=== PATIENT | female | born 1955 | race Caucasian/White ===

== ENCOUNTER 2020-01-28 05:46 | Inpatient (IN) | payer MEDICARE, OTHER ==
[2020-01-21 14:35] LABS: BASOPHILS % (AUTO) 0.5 % (0-1); EOSINOPHILS % (AUTO) 0.9 % (0-6); LYMPHOCYTES # (AUTO) 1.1 X10'3 (1.1-4.8); LYMPHOCYTES % (AUTO) 21.9 % (21-51); MEAN CORPUSCULAR HEMOGLOBIN 28.7 PG (27.0-31.0); MEAN CORPUSCULAR HGB CONC 33.3 g/dL (33.0-36.5); MEAN PLATELET VOLUME 9.9 FL (7.4-10.4); MONOCYTES # (AUTO) 0.4 X10'3 (0-0.9); MONOCYTES % (AUTO) 7.8 % (2-12); NEUTROPHILS # (AUTO) 3.3 X10'3 (1.8-7.7); NEUTROPHILS % (AUTO) 68.9 % (42-75); PRE OP HEMATOCRIT 41.5 % (35.0-45.0); PRE OP HEMOGLOBIN 13.9 g/dL (12.0-16.0); RED BLOOD COUNT 4.83 X10'6 (4.20-5.60); RED CELL DISTRIBUTION WIDTH 14.9 % (11.5-14.5)
[2020-01-21 14:44] LABS: HEMOGLOBIN A1C 6.2 % (4.5-6.2)
[2020-01-21 14:48] LABS: PRE OP INR 1.1 INR
[2020-01-21 14:58] LABS: ALBUMIN 3.9 G/DL (3.4-5.0); ALBUMIN/GLOBULIN RATIO 1.1 (1.1-1.5); ALKALINE PHOSPHATASE 121 IU/L (46-116); BLOOD UREA NITROGEN 12 MG/DL (7-18); CALCIUM 9.1 MG/DL (8.5-10.1); CHLORIDE 102 MMOL/L (99-107); PRE OP ALT 42 U/L (30-65); PRE OP ANION GAP 5 (8-16); PRE OP AST 40 U/L (10-37); PRE OP BILIRUB, TOTAL 0.4 MG/DL (0.0-1.0); PRE OP GLUCOSE 99 MG/DL (70-104); PRE OP SODIUM 138 MMOL/L (135-145); TOTAL CARBON DIOXIDE 30.6 MMOL/L (24-32); TOTAL PROTEIN 7.4 G/DL (6.4-8.2); eGFR > 90 ML/MIN
[2020-01-21 15:16] LABS: PRE OP PLATELET COUNT 61 X10'3 (140-440)
[~2020-01-28] VITALS: Ht 167.6 cm; Wt 87.6 kg
[2020-01-28] VITALS (14 sets, daily range): BP systolic 98–143; BP diastolic 55–78
[~2020-01-28 05:46] MED LIST: ALBU8HFA PO; DOL10T PO; INSU100C4 SQ; INSU100V12 SQ; METF-900 PO; MORPHINE PO; PARO-62 PO; TIOT4MIS2 INFRACLAV; TRAZ-251 PO; ceFAZolin 2gm in dextrose, iso 50 ML IV ONE; famotidine 20mg tablet PO ONE; ringers solution, lacted 1,000 ML IV SCH; tranexamic acid inj. 860 MG in normal saline 100ml IV soln 100 ML IV ONE; vancomycin 1,500 MG in NS 300ml IV soln IV ONE
[2020-01-28] MEDS ORDERED: LIDOcaine 1% (10mg/ml) 2ml vial ONE (06:26)
[2020-01-28] MEDS ORDERED: ketorolac trometh. 30mg/ml inj. ONE (06:41)
[2020-01-28] MEDS ORDERED: ROPIVAcaine 0.5% (5mg/ml) 30ml vial ONE ×2 (06:42→10:19)
[2020-01-28] MEDS ORDERED: LIDOcaine 1%/PF 5ML 10 MG/ML VIAL ONE (08:52)
[2020-01-28] MEDS ORDERED: ondansetron/PF 4mg/2ml inj ONE (08:52)
[2020-01-28] MEDS ORDERED: sevoflurane 250ml liquid IH ONE (08:52)
[2020-01-28] MEDS ORDERED: MIDAZolam 5mg/5ml vial ONE (08:58)
[2020-01-28] MEDS ORDERED: fentaNYL/PF 50MCG/1 ML 2ML syringe ONE (08:58)
[2020-01-28] MEDS ORDERED: propofol inj 20 ML IV ONE ×2 (09:22→10:18)
[2020-01-28] MEDS ORDERED: DESMOPRESSIN IV ONE (09:45)
[2020-01-28] MEDS ORDERED: NORMAL SALINE IV ONE (09:45)
[2020-01-28] MEDS ORDERED: meperidine/PF 25mg/ml syringe IV PRN ×3 (10:00)
[2020-01-28] MEDS ORDERED: ringers solution, lacted 1,000 ML IV SCH (10:00)
[2020-01-28] MEDS ORDERED: morphine 2 MG/ML inj. syringe IV PRN (10:00)
[2020-01-28] MEDS ORDERED: ondansetron/PF 4mg/2ml inj IV PRN ×2 (10:00→11:05)
[2020-01-28] MEDS ORDERED: morphine 4 MG/ML inj SYRINge IV PRN (10:00)
[2020-01-28] MEDS ORDERED: proCHLORperazine 10 MG/2 ml inj IV PRN (10:00)
[2020-01-28] MEDS ORDERED: ROPIVAcaine 0.2% (10 MG/5 ML) BOLUS INJECTION INTERSCALE PRN (10:05)
[2020-01-28] MEDS ORDERED: ROPIVAcaine 0.2%/PF PUMP/bolus 550 ML INTERSCALE SCH (10:05)
[2020-01-28] MEDS ORDERED: rocuronium 10mg/ml inj IV ONE (10:18)
[2020-01-28] MEDS ORDERED: ePHEDrine 50MG/ML INJ. ONE (10:18)
[2020-01-28] MEDS ORDERED: dexamethasone sod phosphate 4mg/ml inj. ONE (10:19)
[2020-01-28] MEDS ORDERED: oxyCODONE IR 5mg (immed. release) tablet PO PRN (11:05)
[2020-01-28] MEDS ORDERED: diphenhydrAMINE 25mg capsule PO PRN ×2 (11:05)
[2020-01-28] MEDS ORDERED: bisacodyl 10mg suppository rectal RC PRN (11:05)
[2020-01-28] MEDS ORDERED: HYDROmorphone inj. 0.5 MG/0.5 ML DISP.SYRIN IV PRN (11:05)
[2020-01-28] MEDS ORDERED: acetaminophen 325mg tablet PO PRN (11:05)
[2020-01-28] MEDS ORDERED: HYDROmorphone 1 mg/ml syringe IV PRN (11:05)
[2020-01-28] MEDS ORDERED: magnesium hydroxide 30ml (MOM) UD suspension PO PRN (11:05)
--- NOTE | 2020-01-28 11:07 | NUR ---
Received from OR via , accompanied by Anesthesiologist DR KAT and report given by Anesthesiolgist. AWAKE AND PEYTON PAIN. VITALS STABLE. DRESSING DI. LUE IN SIMPLE SLING. HAND WARM AND PINK.
[2020-01-28] MEDS ORDERED: ipratropium 0.5 MG/2.5ML nebule IH PRN (11:20)
[2020-01-28] MEDS ORDERED: albuterol 2.5 MG/3 ML nebule NEB PRN (11:25)
[2020-01-28] MEDS ORDERED: INSULIN ASPART SQ SCH (12:00)
--- NOTE | 2020-01-28 12:07 | NUR ---
Report called to receiving nurse. Transferred via BED Belongings . Special Issues communicated to receiving nurse. ALERT AND ORIENTED. VITALS STABLE. DRESSING DI. PEYTON PAIN. TO ORTHO RM [id number] AT THIS TIME.
[2020-01-28] MEDS: acetaminophen 325mg tablet PO SCH ×2 (13:14→20:00)
[2020-01-28] MEDS: methadone 5mg tablet PO SCH ×2 (13:14→20:59)
[2020-01-28] MEDS: insulin Lispro (HumaLOG) vial - multi-dose SQ SCH ×2 (13:32→18:55)
[2020-01-28] MEDS ORDERED: tranexamic acid inj. 860 MG in normal saline 100ml IV soln 100 ML IV ONE (14:05)
[2020-01-28] MEDS: ceFAZolin/D5W- 1GM premix 50 ML IV SCH (16:11)
[2020-01-28] MEDS: potassium cl 20mEq in 1/2 NS 1,000 ML IV SCH (16:11)
[2020-01-28] MEDS: insulin glargine (Lantus) pen - multi-dose SQ SCH (17:52)
--- NOTE | 2020-01-28 17:58 | NUR ---
PATIENT DID NOT LIKE ONQ AND WANTED IT TO BE REMOVED. I EXPLAINED THE PURPOSE OF THE ONQ AND SHE STILL DID NOT WANT IT. IT WAS REMOVED AND BRYAN VELASCO WAS AWARE.
[2020-01-28] MEDS ORDERED: vancomycin/NS 1 GM ADD-VANTAGE 250 ML IV SCH (20:00)
[2020-01-28] MEDS: metFORMIN 500mg tablet PO SCH (20:06)
[2020-01-28] MEDS ORDERED: traZODone 50mg tablet PO SCH (21:00)
[2020-01-28] MEDS ORDERED: PARoxetine 20mg tablet PO SCH (21:00)
[2020-01-28] MEDS: oxyCODONE IR 5mg (immed. release) tablet PO PRN (21:00)
[2020-01-28] MEDS ORDERED: sennosides 8.6mg tablet PO SCH (21:00)
--- NOTE | 2020-01-28 21:24 | NUR ---
pt refused hs blood sugar check, blood sugar was checked after dinner as patient checks it then at home.
[2020-01-29] MEDS: ceFAZolin/D5W- 1GM premix 50 ML IV SCH (00:58)
[2020-01-29] MEDS: potassium cl 20mEq in 1/2 NS 1,000 ML IV SCH ×2 (01:04→03:05)
[2020-01-29] MEDS: acetaminophen 325mg tablet PO SCH ×2 (01:04→08:00)
[2020-01-29 02:00] VITALS: BP 108/58
[2020-01-29] MEDS: oxyCODONE IR 5mg (immed. release) tablet PO PRN (05:00)
[2020-01-29 06:00] VITALS: BP 110/60
--- NOTE | 2020-01-29 06:23 | NUR ---
Report given to Мария KEENAN.
[2020-01-29 06:59] LABS: BASOPHILS % (AUTO) 0.2 % (0-1); EOSINOPHILS % (AUTO) 0.2 % (0-6); HEMATOCRIT 34.4 % (35.0-45.0); HEMOGLOBIN 11.6 g/dl (12.0-16.0); LYMPHOCYTES % (AUTO) 14.9 % (21-51); MEAN CORPUSCULAR HEMOGLOBIN 29.4 PG (27.0-31.0); MEAN CORPUSCULAR HGB CONC 33.8 g/dL (33.0-36.5); MEAN CORPUSCULAR VOLUME 86.8 FL (78-98); MEAN PLATELET VOLUME 9.9 FL (7.4-10.4); MONOCYTES # (AUTO) 0.5 X10'3 (0-0.9); MONOCYTES % (AUTO) 7.9 % (2-12); NEUTROPHILS # (AUTO) 5.3 X10'3 (1.8-7.7); NEUTROPHILS % (AUTO) 76.8 % (42-75); PLATELET COUNT 75 X10'3 (140-440); RED BLOOD COUNT 3.96 X10'6 (4.20-5.60); RED CELL DISTRIBUTION WIDTH 14.7 % (11.5-14.5); WHITE BLOOD COUNT 6.9 X10'3 (4.5-11.0)
[2020-01-29] MEDS: insulin Lispro (HumaLOG) vial - multi-dose SQ SCH (07:00)
[2020-01-29 07:11] LABS: ANION GAP 7 (8-16); CHLORIDE 104 MMOL/L (99-107); POTASSIUM 4.1 MMOL/L (3.5-5.1); SODIUM 140 MMOL/L (135-145)
[2020-01-29] MEDS: insulin glargine (Lantus) pen - multi-dose SQ SCH (08:02)
[2020-01-29] MEDS: methadone 5mg tablet PO SCH (08:04)
[2020-01-29] MEDS: metFORMIN 500mg tablet PO SCH (08:04)
[2020-01-29] MEDS ORDERED: aspirin 325mg tablet PO SCH (08:30)
[2020-01-29] MEDS ORDERED: ASPI-1 PO (09:29)
[2020-01-29 10:00] VITALS: BP 116/58
--- NOTE | 2020-01-29 10:25 | NUR ---
Patient stable for discharge home today. All discharge instructions given to patient and questions answered. IV removed with canula intact.
[2020-01-30] MEDS ORDERED: acetaminophen 325mg tablet PO PRN (11:05)
== END 2020-01-29 10:05 | disposition home or self-care (01) | DRG 483 ==
LOC: UNDOADMIN 05:46 → PAS IN 05:46 → EDSTATUS 10:00 → PAS IN 11:04 → ORTHO 4S 12:13 → PAS IN 12:13
PROVIDERS: ADMIT Orthopaedic Surgery; ATTEND Orthopaedic Surgery
PROC: 3E0T3BZ Introduction of Anesthetic Agent into Peripheral Nerves and Plexi, Percutaneous Approach (ICD-10-PCS; 2020-01-28)
PROC: 0RRK0JZ Replacement of Left Shoulder Joint with Synthetic Substitute, Open Approach (ICD-10-PCS; principal; 2020-01-28 08:52)
DX: M19.012 Primary osteoarthritis, left shoulder (principal); M25.512 Pain in left shoulder; M75.22 Bicipital tendinitis, left shoulder; J45.909 Unspecified asthma, uncomplicated; F32.9 Major depressive disorder, single episode, unspecified
CPT/HCPCS: 36415; 80051; 80053; 82948; 83036; 85025; 85610; 85730; 87081; 87635; 94760; 97110; 97161; 97530; A4618; A7000; C1713; C1776; G0378; J0690; J1100; J1815; J1885; J2001; J2250; J2405; J2597; J2704; J2795; J3010; J3370; J3480; J7040; J7120

== ENCOUNTER 2021-08-07 01:09 | Emergency (ER) | payer MEDICARE, OTHER ==
[~2021-08-07] VITALS: Ht 167.6 cm; Wt 86.4 kg
[~2021-08-07 01:09] MED LIST changes: +ASPI-1 PO; -ceFAZolin 2gm in dextrose, iso 50 ML IV ONE; -famotidine 20mg tablet PO ONE; -ringers solution, lacted 1,000 ML IV SCH; -tranexamic acid inj. 860 MG in normal saline 100ml IV soln 100 ML IV ONE; -vancomycin 1,500 MG in NS 300ml IV soln IV ONE
[2021-08-07] MEDS ORDERED: ketorolac trometh inj. 60 MG/2 ML VIAL IM ONE (01:45)
[2021-08-07 02:07] VITALS: BP 138/82
== END 2021-08-07 02:09 | disposition home or self-care (01) ==
LOC: ER 01:10
DX: G89.29 Other chronic pain (principal); M54.50 Low back pain, unspecified; Z88.8 Allergy status to other drugs, medicaments and biological substances; Z88.5 Allergy status to narcotic agent; Z79.4 Long term (current) use of insulin; Z79.82 Long term (current) use of aspirin; Z79.899 Other long term (current) drug therapy
CPT/HCPCS: 96372; 99283; J1885

== ENCOUNTER 2023-12-20 05:33 | Emergency (ER) | payer MEDICARE, OTHER ==
[~2023-12-20] VITALS: Ht 167.6 cm; Wt 66.8 kg
[~2023-12-20 05:33] MED LIST changes: +PARO-141 PO; -PARO-62 PO
[2023-12-20 08:02] VITALS: BP 129/78; PULSE 101; RESP 18; TEMP 97.4; O2SAT 94
[2023-12-20] MEDS ORDERED: CEPH-585 PO (09:24)
[2023-12-20] MEDS: LIDOcaine/epinephrine/tetracaine TOPICAL sol 3 ML syringe TOP ONE (09:34)
== END 2023-12-20 09:40 | disposition home or self-care (01) ==
LOC: ER 05:35
DX: S91.312A Laceration without foreign body, left foot, initial encounter (principal); E11.9 Type 2 diabetes mellitus without complications; G89.29 Other chronic pain; M54.9 Dorsalgia, unspecified; F32.A Depression, unspecified; Z88.5 Allergy status to narcotic agent; Z88.8 Allergy status to other drugs, medicaments and biological substances; Z79.2 Long term (current) use of antibiotics; Z79.82 Long term (current) use of aspirin; Z79.84 Long term (current) use of oral hypoglycemic drugs; Z79.4 Long term (current) use of insulin; Z98.890 Other specified postprocedural states; W22.8XXA Striking against or struck by other objects, initial encounter; Y93.89 Activity, other specified; Y92.89 Other specified places as the place of occurrence of the external cause; Y99.8 Other external cause status
CPT/HCPCS: 73630; 99283; J3490